=== PATIENT | female | born 1940 | race Native Hawaiian/Other Pacific Islander ===

== ENCOUNTER 2020-06-13 14:55 | Outpatient (CLI) | payer OTHER ==
[2020-06-13 17:23] LABS: PLATELET COUNT 392 K/uL (152-353)
[2020-06-13] MEDS ORDERED: BENICAR HCT1 TA1 PO (22:24)
[2020-06-13] MEDS ORDERED: EZET10TA13 PO (22:24)
[2020-06-13] MEDS ORDERED: SERT50TA PO (22:25)
[2020-06-13] MEDS ORDERED: EUTHYROX175 MCG PO (22:27)
[2020-06-13] MEDS ORDERED: METFTAB PO (22:28)
[2020-06-13] MEDS ORDERED: DEXL60CA4 PO (22:28)
== END 2020-06-13 22:04 | disposition home or self-care (01) ==
LOC: RAD 14:55
PROVIDERS: ATTEND Nurse Practitioner Family
DX: R06.02 Shortness of breath (principal)
CPT/HCPCS: 36415; 36600; 80053; 82728; 82805; 85027; 86140

== ENCOUNTER 2020-06-13 17:47 | Inpatient (IN) | payer OTHER ==
[~2020-06-13] VITALS: Ht 167.6 cm; Wt 91.4 kg
[2020-06-13] VITALS (10 sets, daily range): BP systolic 118–150; BP diastolic 38–94; TEMP 98–98.7
[2020-06-13] MEDS ORDERED: EZET10TA13 PO (22:24)
[2020-06-13] MEDS ORDERED: BENICAR HCT1 TA1 PO (22:24)
[2020-06-13] MEDS ORDERED: SERT50TA PO (22:25)
[2020-06-13] MEDS ORDERED: EUTHYROX175 MCG PO (22:27)
[2020-06-13] MEDS ORDERED: DEXL60CA4 PO (22:28)
[2020-06-13] MEDS ORDERED: METFTAB PO (22:28)
[2020-06-14] VITALS (16 sets, daily range): BP systolic 121–162; BP diastolic 52–76; TEMP 97.5–99.2; Ht 167.6 cm; Wt 91.4 kg
[2020-06-14 10:35] LABS: PLATELET COUNT 339 K/uL (152-353)
[2020-06-15] VITALS (12 sets, daily range): BP systolic 93–160; BP diastolic 63–78; TEMP 97.7–98.5
[2020-06-15 11:39] LABS: PLATELET COUNT 299 K/uL (152-353)
[2020-06-15 11:46] LABS: POTASSIUM 4.5 mmol/L (3.6-5.2)
== END 2020-06-15 14:45 | disposition home or self-care (01) | DRG 812 ==
LOC: ED 17:47 → MED/SURG 22:45
PROVIDERS: ADMIT Internal Medicine Endocrinology, Diabetes & Metabolism; ATTEND Internal Medicine Endocrinology, Diabetes & Metabolism
PROC: 30233N1 Transfusion of Nonautologous Red Blood Cells into Peripheral Vein, Percutaneous Approach (ICD-10-PCS; principal; 2020-06-13)
PROC: 30233N1 Transfusion of Nonautologous Red Blood Cells into Peripheral Vein, Percutaneous Approach (ICD-10-PCS; 2020-06-14)
PROC: 30233N1 Transfusion of Nonautologous Red Blood Cells into Peripheral Vein, Percutaneous Approach (ICD-10-PCS; 2020-06-15)
DX: D64.89 Other specified anemias (principal); K92.2 Gastrointestinal hemorrhage, unspecified; R19.5 Other fecal abnormalities; E11.9 Type 2 diabetes mellitus without complications; I10 Essential (primary) hypertension; E03.8 Other specified hypothyroidism; E66.8 Other obesity; Z68.32 Body mass index [BMI] 32.0-32.9, adult; R06.02 Shortness of breath
CPT/HCPCS: 36415; 36430; 36600; 80048; 80053; 81000; 82272; 82728; 82805; 83735; 83880; 84484; 85027; 85610; 86140; 86850; 86900; 86901; 86922; 87635; 93005; 99284; P9016; U0003